=== PATIENT | female | born 1990 | race African-American/Black ===

== ENCOUNTER 2022-03-24 00:52 | Emergency (ER) | payer SELFPAY ==
[~2022-03-24] VITALS: Ht 162.6 cm; Wt 70.3 kg
--- NOTE | 2022-03-24 01:08 | NUR ---
BIBFRIEND C/O ON & OFF CP X3 DAYS. +LEFT ARM TINGLINESS. DENIES N/V/D. STATES MOTHER RECENTLY. PT A/OX4. TOLERATING R/A WELL WITH NO RESP DISTRESS. CONNECTED PT TO POX AND MONITOR. SAFETY MEASURES IN PLACE.
--- NOTE | 2022-03-24 01:17 | NUR ---
EMT AT PT'S BEDSIDE FOR EKG
--- NOTE | 2022-03-24 02:08 | NUR ---
SILK WORKER AT PT'S BEDSIDE
--- NOTE | 2022-03-24 02:25 | NUR ---
MOBILE MARKETING MANAGER AT PT'S BEDSIDE
[2022-03-24 02:58] LABS: BASOPHILS % (AUTO) 0.4 % (0.0-2.0); EOSINOPHILS % (AUTO) 1.2 % (0.0-6.0); HEMATOCRIT 42 % (33-45); HEMOGLOBIN 13.7 g/dL (11.5-14.8); LYMPHOCYTES # (AUTO) 1.4 K/uL (0.8-4.8); LYMPHOCYTES % (AUTO) 20.9 % (20.0-44.0); MEAN CORPUSCULAR HGB CONC 33 g/dl (31.0-36.0); MEAN CORPUSCULAR VOLUME 85 fL (82-100); MONOCYTES # (AUTO) 0.5 K/uL (0.1-1.30); NEUTROPHILS # (AUTO) 4.7 K/uL (1.8-8.9); NEUTROPHILS % (AUTO) 70.5 % (43.0-81.0); PLATELET COUNT (AUTO) 260 K/uL (150-450); RED BLOOD CELL COUNT(AUTO) 4.95 MIL/uL (4.0-5.2); WHITE BLOOD COUNT (AUTO) 6.7 K/uL (4.3-11.0)
[2022-03-24 03:07] LABS: CALCIUM, SERUM 9.4 mg/dL (8.5-10.1); POTASSIUM 3.6 mmol/L (3.5-5.1)
[2022-03-24 03:23] LABS: THYROID STIMULATING HORMONE 2.163 uIU/mL (0.358-3.74)
--- NOTE | 2022-03-24 03:59 | NUR ---
Patient discharged to home in stable condition. Written and verbal after care instructions given. Patient verbalizes understanding of instruction. PT ambulatory with a steady gait
[2022-03-24 04:00] VITALS: BP 128/78
== END 2022-03-24 04:05 | disposition home or self-care (01) ==
LOC: ER 00:54
DX: R07.89 Other chest pain (principal); F43.9 Reaction to severe stress, unspecified; Z60.2 Problems related to living alone
CPT/HCPCS: 36415; 71045-TC; 80048-TC; 84443-TC; 84484-TC; 85025-TC